=== PATIENT | female | born 1985 | race Caucasian/White ===

== ENCOUNTER 2016-11-02 07:09 | Emergency (ER) | payer OTHER ==
--- NOTE | 2016-11-02 09:04 | DIAGNOSTIC IMAGING REPORT ---
PROCEDURE: XR CHEST 2 VIEW INDICATION: COUGH, initial encounter TECHNIQUE: PA and lateral view. COMPARISON: None. FINDINGS: Lungs are clear. Cardiovascular structures are normal. Bony thorax is unremarkable. IMPRESSION: 1. Negative chest.
--- NOTE | 2016-11-02 09:05 | DIAGNOSTIC IMAGING REPORT ---
PROCEDURE: XR ABDOMEN 1 VIEW UPRIGHT INDICATION: VOMITING TECHNIQUE: AP upright view. COMPARISON: None. FINDINGS: No bowel obstruction, free air, mass or suspicious calcifications. Metallic umbilical piercing device is present. Bones are unremarkable. IMPRESSION: 1. Nonspecific bowel gas pattern.
--- NOTE | 2016-11-02 09:55 | ED CLINICAL REPORT ---
Clinical Report - Physicians/Mid Levels [facility] [address] [place] [address] 11/02/2016 7:16 Patient: EDDY MICHELLE Time Seen: 08:13 Nov 02 2016. Arrived- By private vehicle. Historian- patient. CPT: ER phys charges level 4 (#[id number]). HISTORY OF PRESENT ILLNESS Chief Complaint: VOMITING and DIARRHEA. ABDOMINAL PAIN and NAUSEA. This started about 1 weeks [employer] and is still present. No recent travel. She has had nausea and mild abdominal pain. The pain is described as located in the central area of the abdomen. She has had vomiting (1 times per day). She has had diarrhea (1 times per day). No black stools, bloody stools, flank pain, history of possible bad food exposure or known contact with a sick individual. Has not recently been camping or on antibiotics. The illness is described as moderate. (Has had baseline GI symptoms thought to be IBS and possible small bowel overgrowth syndrome. Has stayed away from dairy and glutten and feels the symptoms this week are different for her. Her PO intake has been down and she is worried about being dehydrated.). Similar symptoms previously: None. Recent medical care: Not recently seen/assessed. REVIEW OF SYSTEMS No fever, muscle aches, difficulty with urination, dark urine or headache. No chest pain, difficulty breathing, excessive urination or skin rash. Denies current . She has had dizziness and a sore throat and cough. All systems otherwise negative, except as recorded above. PAST HISTORY Fractured tibia right leg. Surgery 1 month ago. Anxiety Reaction. ADDITIONAL SURGERIES: ACL repair/tibia fx screws in. Benign tumor right breast removed. Facial surgery for injury. Medications: Oxycodone-Acetaminophen Oral 5/325 mg, as needed. Xanax Oral 0.5 mg, as needed. Zofran Oral. NuvaRing Vaginal. Effexor XR Oral 37.5 mg. Allergies: No Known Drug Allergy. SOCIAL HISTORY Former smoker. No alcohol use or drug use. ADDITIONAL NOTES The nursing notes have been reviewed. PHYSICAL EXAM Vital Signs: 11/02/2016 07:47 BP: 124/71. HR: 97. RR: 20. O2 saturation: 100%. Temp: 99.2 F. Pain level now: 5/10. Appearance: Alert. No acute distress. Eyes: Pupils equal, round and reactive to light. Eyes normal inspection. ENT: Ears normal. Nose normal. Dry mucous membranes present. Neck: Normal inspection. CVS: Normal heart rate and rhythm. Heart sounds normal. Pulses normal. Respiratory: No respiratory distress. Breath sounds normal. Abdomen: Soft. Mild tenderness in the periumbilical area. No guarding. Bowel sounds normal. No mass. Back: Normal inspection. No CVA tenderness. Skin: Skin warm. Normal skin color. No rash. Extremities: Extremities exhibit normal ROM. No lower extremity edema. Neuro: Oriented X 3. No motor deficit. No sensory deficit. LABS, X-RAYS, AND EKG Laboratory Tests: CBC w Diff: (JODY: 11/02/2016 08:06) ( [facility] 11/02/2016 08:35) Final results Test Result Flag Units (Reference) WHITE BLOOD COUNT 6.5 K/uL (4.5-11.5) RED BLOOD COUNT 4.32 M/uL (4.00-5.20) HEMOGLOBIN 13.3 gm/dL (12.0-16.0) HEMATOCRIT 39.1 % (36.0-46.0) MEAN CELL VOLUME 91 fL (80-100) MEAN CORPUSCULAR HGB 31 pg (26-34) MEAN CORPUSCULAR HGB CONC 34 g/dL (31-37) RED CELL DISTRIBUTION WIDTH 12.5 % (11.6-14.8) PLATELET COUNT 216 K/uL (150-400) NEUTROPHIL % 70.3 % (50-75) LYMPH % 23.5 L % (25-40) MONO % 5.3 % (3-14) EOSINOPHIL % 0.3 % (0-4) BASOPHIL % 0.6 % (0-2) CMP: (JODY: 11/02/2016 08:06) ( [facility] 11/02/2016 08:55) Final results Test Result Flag Units (Reference) GLUCOSE 94 mg/dL (70-110) BUN 13 mg/dL (7-18) CREATININE 0.8 mg/dL (0.6-1.3) Estimated GFR >60 mL/min Estimated GFR- >60 mL/min Note: Persistent reduction over 3 months in eGFR<60 mL/min/1.73 m2 defines CKD. Patients with eGFR values>=60 mL/min/1.73 m2 may also have CKD if evidence ofpersistent proteinuria. Additional information may be foundat www.kidney.org. SODIUM 139 mmol/L (136-145) POTASSIUM 4.0 mmol/L (3.5-5.1) CHLORIDE 103 mmol/L (98-107) CARBON DIOXIDE 23 mmol/L (21-32) CALCIUM 9.0 mg/dL (8.5-10.1) TOTAL PROTEIN 7.7 g/dL (6.4-8.2) ALBUMIN 3.8 g/dL (3.3-5.0) BILIRUBIN, TOTAL 0.4 mg/dL (0.0-1.0) ALKALINE PHOSPHATASE 54 U/L (46-116) AST (SGOT) 16 U/L (15-37) ALT (SGPT) 12 U/L (12-78) LIPASE 96 U/L (73-393) . PROGRESS AND PROCEDURES Course of Care: IV NS Phenergan 12.5 mg IV Patient is stable. Symptoms better. Patient/family counseled. Disposition: Discharged. Condition: stable. CLINICAL IMPRESSION Vomiting and diarrhea Volume depletion. INSTRUCTIONS Take clear liquids only (frequent sips) until better. Advance diet as tolerated. Warnings: Further evaluation is necessary. SEDATIVE MEDICATION: You were given sedative medication during your visit. Do not drive or operate dangerous machinery. Your Current Medications: CONTINUE TAKING THE FOLLOWING MEDICATIONS: Effexor XR Oral : 37.5 mg. NuvaRing Vaginal. Oxycodone-Acetaminophen Oral : 5/325 mg, prn. Xanax Oral : 0.5 mg, prn. Zofran Oral. Follow-up: Follow up with your doctor Saturday in three days if not well. Understanding of the discharge instructions verbalized by patient. (Electronically signed by Nikhil Osorio MD 11/04/2016 23:37)
--- NOTE | 2016-11-02 09:55 | ED CLINICAL REPORT ---
Clinical Report - Physicians/Mid Levels [facility] [address] [place] [address] 11/02/2016 7:16 Patient: EDDY MICHELLE Time Seen: 08:13 Nov 02 2016. Arrived- By private vehicle. Historian- patient. CPT: ER phys charges level 4 (#[id number]). HISTORY OF PRESENT ILLNESS Chief Complaint: VOMITING and DIARRHEA. ABDOMINAL PAIN and NAUSEA. 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 No recent travel. She has had nausea and mild abdominal pain. The pain is described as located in the central area of the abdomen. She has had vomiting (1 times per day). She has had diarrhea (1 times per day). No black stools, bloody stools, flank pain, history of possible bad food exposure or known contact with a sick individual. Has not recently been camping or on antibiotics. The illness is described as moderate. (Has had baseline GI symptoms thought to be IBS and possible small bowel overgrowth syndrome. Has stayed away from dairy and glutten and feels the symptoms this week are different for her. Her PO intake has been down and she is worried about being dehydrated.). Similar symptoms previously: None. Recent medical care: Not recently seen/assessed. REVIEW OF SYSTEMS No fever, muscle aches, difficulty with urination, dark urine or headache. No chest pain, difficulty breathing, excessive urination or skin rash. Denies current . She has had dizziness and a sore throat and cough. All systems otherwise negative, except as recorded above. PAST HISTORY Fractured tibia right leg. Surgery 1 month ago. Anxiety Reaction. ADDITIONAL SURGERIES: ACL repair/tibia fx screws in. Benign tumor right breast removed. Facial surgery for injury. Medications: Oxycodone-Acetaminophen Oral 5/325 mg, as needed. Xanax Oral 0.5 mg, as needed. Zofran Oral. NuvaRing Vaginal. Effexor XR Oral 37.5 mg. Allergies: No Known Drug Allergy. SOCIAL HISTORY Former smoker. No alcohol use or drug use. ADDITIONAL NOTES The nursing notes have been reviewed. PHYSICAL EXAM Vital Signs: 11/02/2016 07:47 BP: 124/71. HR: 97. RR: 20. O2 saturation: 100%. Temp: 99.2 F. Pain level now: 5/10. Appearance: Alert. No acute distress. Eyes: Pupils equal, round and reactive to light. Eyes normal inspection. ENT: Ears normal. Nose normal. Dry mucous membranes present. Neck: Normal inspection. CVS: Normal heart rate and rhythm. Heart sounds normal. Pulses normal. Respiratory: No respiratory distress. Breath sounds normal. Abdomen: Soft. Mild tenderness in the periumbilical area. No guarding. Bowel sounds normal. No mass. Back: Normal inspection. No CVA tenderness. Skin: Skin warm. Normal skin color. No rash. Extremities: Extremities exhibit normal ROM. No lower extremity edema. Neuro: Oriented X 3. No motor deficit. No sensory deficit. LABS, X-RAYS, AND EKG Laboratory Tests: CBC w Diff: (JODY: 11/02/2016 08:06) ( [facility] 11/02/2016 08:35) Final results Test Result Flag Units (Reference) WHITE BLOOD COUNT 6.5 K/uL (4.5-11.5) RED BLOOD COUNT 4.32 M/uL (4.00-5.20) HEMOGLOBIN 13.3 gm/dL (12.0-16.0) HEMATOCRIT 39.1 % (36.0-46.0) MEAN CELL VOLUME 91 fL (80-100) MEAN CORPUSCULAR HGB 31 pg (26-34) MEAN CORPUSCULAR HGB CONC 34 g/dL (31-37) RED CELL DISTRIBUTION WIDTH 12.5 % (11.6-14.8) PLATELET COUNT 216 K/uL (150-400) NEUTROPHIL % 70.3 % (50-75) LYMPH % 23.5 L % (25-40) MONO % 5.3 % (3-14) EOSINOPHIL % 0.3 % (0-4) BASOPHIL % 0.6 % (0-2) CMP: (JODY: 11/02/2016 08:06) ( [facility] 11/02/2016 08:55) Final results Test Result Flag Units (Reference) GLUCOSE 94 mg/dL (70-110) BUN 13 mg/dL (7-18) CREATININE 0.8 mg/dL (0.6-1.3) Estimated GFR >60 mL/min Estimated GFR- >60 mL/min Note: Persistent reduction over 3 months in eGFR<60 mL/min/1.73 m2 defines CKD. Patients with eGFR values>=60 mL/min/1.73 m2 may also have CKD if evidence ofpersistent proteinuria. Additional information may be foundat www.kidney.org. SODIUM 139 mmol/L (136-145) POTASSIUM 4.0 mmol/L (3.5-5.1) CHLORIDE 103 mmol/L (98-107) CARBON DIOXIDE 23 mmol/L (21-32) CALCIUM 9.0 mg/dL (8.5-10.1) TOTAL PROTEIN 7.7 g/dL (6.4-8.2) ALBUMIN 3.8 g/dL (3.3-5.0) BILIRUBIN, TOTAL 0.4 mg/dL (0.0-1.0) ALKALINE PHOSPHATASE 54 U/L (46-116) AST (SGOT) 16 U/L (15-37) ALT (SGPT) 12 U/L (12-78) LIPASE 96 U/L (73-393) . PROGRESS AND PROCEDURES Course of Care: IV NS Phenergan 12.5 mg IV Patient is stable. Symptoms better. Patient/family counseled. Disposition: Discharged. Condition: stable. CLINICAL IMPRESSION Vomiting and diarrhea Volume depletion. INSTRUCTIONS Take clear liquids only (frequent sips) until better. Advance diet as tolerated. Warnings: Further evaluation is necessary. SEDATIVE MEDICATION: You were given sedative medication during your visit. Do not drive or operate dangerous machinery. Your Current Medications: CONTINUE TAKING THE FOLLOWING MEDICATIONS: Effexor XR Oral : 37.5 mg. NuvaRing Vaginal. Oxycodone-Acetaminophen Oral : 5/325 mg, prn. Xanax Oral : 0.5 mg, prn. Zofran Oral. Follow-up: Follow up with your doctor Saturday in three days if not well. Understanding of the discharge instructions verbalized by patient. (Electronically signed by Nikhil Osorio MD 11/04/2016 23:37)
--- NOTE | 2016-11-02 09:55 | ED ORDER SUMMARY ---
..... Patient: EDDY MICHELLE OrderSheet [facility] VisitID: [id number] [place] [address] 31y, F Registration Date/Time: 11/02/2016 ORDER SHEET Weight: 63.5 kg (stated) Allergies: No Known Drug Allergy GENERAL ORDERS: Chest 2V Urgent (08:11/02/2016 Deejay MCLAIN) (Ack 8:31 LTapper) (8:43 LSullivan R.N.) Abdomen 1V Upright Urgent (08:11/02/2016 Deejay MCLAIN) (Ack 8:31 LTapper) (8:43 LSullivan R.N.) UA-Culture if indicated Urgent (:11/02/2016 Deejay MCLAIN) (Ack 8:31 LTapper) (10:27 LSullivan R.N.) Urine Urgent (08:11/02/2016 Deejay MCLAIN) (Ack 8:31 LTapper) (10:27 LSullivan R.N.) Urine Drug Screen Urgent (08:11/02/2016 Deejay MCLAIN) (Ack 8:31 LTapper) (10:27 LSullivan R.N.) CBC w Diff Urgent (08:11/02/2016 Deejay MCLAIN) (Ack 8:31 LTapper) (8:43 LSullivan R.N.) CMP Urgent (08:11/02/2016 Deejay MCLAIN) (Ack 8:31 LTapper) (8:43 LSullivan R.N.) Lipase Urgent (08:11/02/2016 Deejay MCLAIN) (Ack 8:31 LTapper) (8:43 LSullivan R.N.) MEDICATION ORDERS: Phenergan IV 12.5 mg (NOW) (08:29 11/02/2016 Deejay MCLAIN) (8:43 LSullivan R.N.) IV FLUIDS: IV NS with Normal Saline 1 Liter: initial bolus none -, then 1000 mL/hr for X1 (NOW); Routine (08:12 11/02/2016 POPullivan R.N. per protocol) (8:14 Reina Colon) ORDER SHEET NOTES: [Electronically signed by Francesca Mon R.N. (19:12 11/03/2016)] [Electronically signed by Nikhil Osorio MD (23:37 11/04/2016)] [Electronically locked/signed by Francesca Mon R.N. (19:12 11/03/2016)]
--- NOTE | 2016-11-02 09:55 | ED ORDER SUMMARY ---
..... Patient: EDDY MICHELLE OrderSheet [facility] VisitID: [id number] [place] [address] 31y, F Registration Date/Time: 11/02/2016 ORDER SHEET Weight: 63.5 kg (stated) Allergies: No Known Drug Allergy GENERAL ORDERS: Chest 2V Urgent (08:11/02/2016 Deejay MCLAIN) (Ack 8:31 LTapper) (8:43 LSullivan R.N.) Abdomen 1V Upright Urgent (08:11/02/2016 Deejay MCLAIN) (Ack 8:31 LTapper) (8:43 LSullivan R.N.) UA-Culture if indicated Urgent (:11/02/2016 Deejay MCLAIN) (Ack 8:31 LTapper) (10:27 LSullivan R.N.) Urine Urgent (08:11/02/2016 Deejay MCLAIN) (Ack 8:31 LTapper) (10:27 LSullivan R.N.) Urine Drug Screen Urgent (08:11/02/2016 Deejay MCLAIN) (Ack 8:31 LTapper) (10:27 LSullivan R.N.) CBC w Diff Urgent (08:11/02/2016 Deejay MCLAIN) (Ack 8:31 LTapper) (8:43 LSullivan R.N.) CMP Urgent (08:11/02/2016 Deejay MCLAIN) (Ack 8:31 LTapper) (8:43 LSullivan R.N.) Lipase Urgent (08:11/02/2016 Deejay MCLAIN) (Ack 8:31 LTapper) (8:43 LSullivan R.N.) MEDICATION ORDERS: Phenergan IV 12.5 mg (NOW) (08:29 11/02/2016 Deejay MCLAIN) (8:43 LSullivan R.N.) IV FLUIDS: IV NS with Normal Saline 1 Liter: initial bolus none -, then 1000 mL/hr for X1 (NOW); Routine (08:12 11/02/2016 POPullivan R.N. per protocol) (8:14 Reina Colon) ORDER SHEET NOTES: [Electronically signed by Francesca Mon R.N. (19:12 11/03/2016)] [Electronically signed by Nikhil Osorio MD (23:37 11/04/2016)] [Electronically locked/signed by Francesca Mon R.N. (19:12 11/03/2016)]
--- NOTE | 2016-11-02 09:55 | ED NURSING NOTES ---
Clinical Report - Nurses [facility] [address] [place] [address] 11/02/2016 7:16 Patient: EDDY MICHELLE TRIAGE Triage time 07:47. Acuity: LEVEL 4. Chief Complaint: NAUSEA, VOMITING and DIARRHEA. Alert. --07:56 Francesca Mon R.N. 07:47 11/02/16. BP: 124/71. HR: 97. RR: 20. O2 saturation: 100%. Temp: 99.2 F. Pain level now: 5/10. Additional comments: crampy only when diarrhea. --07:56 Francesca Mon R.N. Weight: 63.5 kg stated. Height/Length: 62 inches Per Patient. BMI: 25.6. --07:48 Francesca Mon R.N. Medications Effexor XR Oral 37.5 mg. --07:49 Francesca Mon R.N. NuvaRing Vaginal. --07:50 Francesca Mon R.N. Zofran Oral. --07:50 Francesca Mon R.N. Xanax Oral 0.5 mg, as needed. --07:50 Francesca Mon R.N. Oxycodone-Acetaminophen Oral 5/325 mg, as needed. --07:50 Francesca Mon R.N. Allergies No Known Drug Allergy. --07:49 Francesca Mon R.N. History Arrived by private vehicle. Historian: patient. Accompanied by spouse (pt was dropped off and has a ride when she needs it). Primary physician (Tiffanie). Onset. (about 1 week ago). PAST MEDICAL HX: Immunizations: up-to-date and (did not have flu shot). Denies current . SOCIAL HX: Former smoker, end date 2011. No alcohol use or drug use. FUNCTIONAL ASSESSMENT: Functional assessment: no impairments noted. LEARNING NEEDS ASSESSMENT: The learning needs assessment revealed no barriers. --07:56 Francesca Mon R.N. 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 --07:56 Francesca Mon R.N. PROBLEMS: Fractured tibia right leg. Anxiety Reaction. --07:54 Francesca Mon R.N. ADDITIONAL SURGERIES: ACL repair/tibia fx screws in. Benign tumor right breast removed. Facial surgery for injury. --07:54 Francesca Mon R.N. Assessment The patient states feels the same. --07:56 Francesca Mon R.N. Interventions ID band on patient. To room. --07:56 Francesca Mon R.N. PHYSICAL ASSESSMENT 07:57 11/02/16. Patient gowned. GENERAL / NEURO / PSYCH: Alert. Oriented X 4. RESPIRATORY: Respirations not labored. --07:57 Francesca Mon R.N. NURSING PROGRESS NOTES 07:57 11/02/16. Head of bed elevated. Patient identifiers checked. Call light placed in reach. Bed placed in lowest position. Brakes of bed on. Patient ready for evaluation- chart flagged. --07:57 Francesca Mon R.N. 08:04 11/02/2016 Site #1 started via IV in the right antecubital space with an 20g angiocath, with aseptic technique and good blood return; one attempt. Blood drawn: rainbow set. Labeled in the presence of the patient and sent to the lab. --08:14 Francesca Mon R.N. 08:06 11/02/2016 Started bag #1 1000 mL IV Fluids IV NS (Saline); at 1000 mL/hr via site #1 via IV pump. Confirmed 5 rights. IV patency established. IV site checked: no pain, redness, or swelling. IV flushed thoroughly pre- and post-medication administration. --08:14 Francesca Mon R.N. 08:38 11/02/2016 PHENERGAN (Promethazine HCl) IVP 12.5 mg given over 2 minute(s) via site #1. Allergies verified and confirmed 5 rights. --08:43 Mon, Francesca, R.N. 08:38. Patient transported to radiology by stretcher with [employer]. --08:43 Francesca Mon R.N. 09:17 11/02/2016 IV Fluids IV NS Discontinued: bag #1 completed. Total amount infused: 1000 mL. --10:27 Francesca Mon R.N. 10:18 11/02/2016 Site #1 removed upon discharge. Bandage applied. --10:28 Francesca Mon R.N. DISPOSITION / DISCHARGE Departure time: 1018. Condition at departure: improved. No learning barriers present. Discharge instructions provided and reviewed with the patient. Reviewed referral to family practice. Verbalized understanding. Written instructions provided. The patient was discharged home and accompanied by family. She left the Emergency Department ambulatory and via private vehicle. Family member driving. --10:26 Francesca Mon R.N. 10:18 11/02/16. BP: 104/53. HR: 74. RR: 18. O2 saturation: 100%. Temp: 98.8 F. Pain level now: 0/10. --10:26 Francesca Mon R.N. Locked/Released at 11/03/2016 19:12 by Francesca Mon R.N.
--- NOTE | 2016-11-02 09:55 | ED NURSING NOTES ---
Clinical Report - Nurses [facility] [address] [place] [address] 11/02/2016 7:16 Patient: EDDY MICHELLE TRIAGE Triage time 07:47. Acuity: LEVEL 4. Chief Complaint: NAUSEA, VOMITING and DIARRHEA. Alert. --07:56 Francesca Mon R.N. 07:47 11/02/16. BP: 124/71. HR: 97. RR: 20. O2 saturation: 100%. Temp: 99.2 F. Pain level now: 5/10. Additional comments: crampy only when diarrhea. --07:56 Francesca Mon R.N. Weight: 63.5 kg stated. Height/Length: 62 inches Per Patient. BMI: 25.6. --07:48 Francesca Mon R.N. Medications Effexor XR Oral 37.5 mg. --07:49 Francesca Mon R.N. NuvaRing Vaginal. --07:50 Francesca Mon R.N. Zofran Oral. --07:50 Francesca Mon R.N. Xanax Oral 0.5 mg, as needed. --07:50 Francesca Mon R.N. Oxycodone-Acetaminophen Oral 5/325 mg, as needed. --07:50 Francesca Mon R.N. Allergies No Known Drug Allergy. --07:49 Francesca Mon R.N. History Arrived by private vehicle. Historian: patient. Accompanied by spouse (pt was dropped off and has a ride when she needs it). Primary physician (Tiffanie). Onset. (about 1 week ago). PAST MEDICAL HX: Immunizations: up-to-date and (did not have flu shot). Denies current . SOCIAL HX: Former smoker, end date 2011. No alcohol use or drug use. FUNCTIONAL ASSESSMENT: Functional assessment: no impairments noted. LEARNING NEEDS ASSESSMENT: The learning needs assessment revealed no barriers. --07:56 Francesca Mon R.N. Treatment RESPONDER: (Zofran prn, Xanax yesterday once). --07:56 Francesca Mon R.N. PROBLEMS: Fractured tibia right leg. Anxiety Reaction. --07:54 Francesca Mon R.N. ADDITIONAL SURGERIES: ACL repair/tibia fx screws in. Benign tumor right breast removed. Facial surgery for injury. --07:54 Francesca Mon R.N. Assessment The patient states feels the same. --07:56 Francesca Mon R.N. Interventions ID band on patient. To room. --07:56 Francesca Mon R.N. PHYSICAL ASSESSMENT 07:57 11/02/16. Patient gowned. GENERAL / NEURO / PSYCH: Alert. Oriented X 4. RESPIRATORY: Respirations not labored. --07:57 Francesca Mon R.N. NURSING PROGRESS NOTES 07:57 11/02/16. Head of bed elevated. Patient identifiers checked. Call light placed in reach. Bed placed in lowest position. Brakes of bed on. Patient ready for evaluation- chart flagged. --07:57 Francesca Mon R.N. 08:04 11/02/2016 Site #1 started via IV in the right antecubital space with an 20g angiocath, with aseptic technique and good blood return; one attempt. Blood drawn: rainbow set. Labeled in the presence of the patient and sent to the lab. --08:14 Francesca Mon R.N. 08:06 11/02/2016 Started bag #1 1000 mL IV Fluids IV NS (Saline); at 1000 mL/hr via site #1 via IV pump. Confirmed 5 rights. IV patency established. IV site checked: no pain, redness, or swelling. IV flushed thoroughly pre- and post-medication administration. --08:14 Francesca Mon R.N. 08:38 11/02/2016 PHENERGAN (Promethazine HCl) IVP 12.5 mg given over 2 minute(s) via site #1. Allergies verified and confirmed 5 rights. --08:43 Mon, Francesca, R.N. 08:38. Patient transported to radiology by stretcher with [employer]. --08:43 Francesca Mon R.N. 09:17 11/02/2016 IV Fluids IV NS Discontinued: bag #1 completed. Total amount infused: 1000 mL. --10:27 Francesca Mon R.N. 10:18 11/02/2016 Site #1 removed upon discharge. Bandage applied. --10:28 Francesca Mon R.N. DISPOSITION / DISCHARGE Departure time: 1018. Condition at departure: improved. No learning barriers present. Discharge instructions provided and reviewed with the patient. Reviewed referral to family practice. Verbalized understanding. Written instructions provided. The patient was discharged home and accompanied by family. She left the Emergency Department ambulatory and via private vehicle. Family member driving. --10:26 Francesca Mon R.N. 10:18 11/02/16. BP: 104/53. HR: 74. RR: 18. O2 saturation: 100%. Temp: 98.8 F. Pain level now: 0/10. --10:26 Francesca Mon R.N. Locked/Released at 11/03/2016 19:12 by Francesca Mon R.N.
--- NOTE | 2016-11-04 23:37 | ED MED RECONCILIATION SUMMARY ---
Patient: EDDY MICHELLE Medication Reconciliation Report [facility] VisitID: [id number] [address] [place] [address] 31y, F Registration Date/Time: 11/02/2016 Weight: 63.5 kg Height/Length: 62 in. BMI: 25.6 ALLERGIES: No Known Drug Allergy The patient's Home Medications are listed below: CONTINUE TAKING THE FOLLOWING MEDICATIONS: Effexor XR Oral 37.5 mg NuvaRing Vaginal Oxycodone-Acetaminophen Oral 5/325 mg Xanax Oral 0.5 mg Zofran Oral The source(s) of the original Home Medication information: Not obtained. The following Medications were given to the patient in the Emergency Department: IV NS IV Fluids bolus 0, then 1000 mL/hr, administered: 11/02/2016 8:06:00 AM PHENERGAN [IVP] IVP 12.5 mg, administered: 11/02/2016 8:38:00 AM The following Medications were prescribed to the patient: None.
--- NOTE | 2016-11-04 23:37 | ED DISCHARGE INSTRUCTIONS ---
Patient: EDDY MICHELLE General Instructions [facility] VisitID: [id number] [place] [address] 31y, F Registration Date/Time: 11/02/2016 Vomiting and diarrhea Volume depletion. INSTRUCTIONS Take clear liquids only (frequent sips) until better. Advance diet as tolerated. Warnings: Further evaluation is necessary. SEDATIVE MEDICATION: You were given sedative medication during your visit. Do not drive or operate dangerous machinery. Your Current Medications: CONTINUE TAKING THE FOLLOWING MEDICATIONS: Effexor XR Oral : 37.5 mg. NuvaRing Vaginal. Oxycodone-Acetaminophen Oral : 5/325 mg, prn. Xanax Oral : 0.5 mg, prn. Zofran Oral. Follow-up: Follow up with your doctor Saturday in three days if not well. Understanding of the discharge instructions verbalized by patient. ADDITIONAL INFORMATION Clear Liquid Diet Clear liquids are any liquid that you can see through as well as those that are very easy to digest. This is used while the body is recovering from irritation or infection of the stomach or intestinal tract. It may also be used before special procedures or surgery. This diet is to be used no more than three days. You may include the following items. Adults Adults should drink a total of 23 quarts of liquid per day. It may be easier to drink small frequent servings rather than a few large ones. Liquids can include: Fruit juices.Strained orange juice or lemonade (no pulp), apple, grape and cranberry juice, clear fruit drinks, sports drinks Beverages.Sport drinks, sodas, mineral water (plain or flavored), tea, black coffee, liquid gelatin (add twice the recommended amount of water) Soups.Clear broth, consomm, bouillon Desserts.Plain gelatin, popsicles, fruit juice bars Children Over 2 years old The following liquids are acceptable for children over age 2: Fruit juices.Strained orange juice or lemonade (no pulp), apple, grape and cranberry juice, clear fruit drinks Beverages. Sports drinks, sodas, mineral water (plain or flavored), tea, liquid gelatin (add twice the recommended amount of water) Soups. Clear broth, consomm, bouillon Desserts. Plain gelatin, popsicles, fruit juice bars Children under 2 years old Oral rehydration fluids such are available at drug stores and most grocery stores without a prescription. You have been given the following additional information: Diet, Clear Liquid (Electronically signed by Nikhil Osorio MD 11/04/2016 23:37)
--- NOTE | 2016-11-04 23:37 | ED DISCHARGE INSTRUCTIONS ---
Patient: EDDY MICHELLE General Instructions [facility] VisitID: [id number] [place] [address] 31y, F Registration Date/Time: 11/02/2016 Vomiting and diarrhea Volume depletion. INSTRUCTIONS Take clear liquids only (frequent sips) until better. Advance diet as tolerated. Warnings: Further evaluation is necessary. SEDATIVE MEDICATION: You were given sedative medication during your visit. Do not drive or operate dangerous machinery. Your Current Medications: CONTINUE TAKING THE FOLLOWING MEDICATIONS: Effexor XR Oral : 37.5 mg. NuvaRing Vaginal. Oxycodone-Acetaminophen Oral : 5/325 mg, prn. Xanax Oral : 0.5 mg, prn. Zofran Oral. Follow-up: Follow up with your doctor Saturday in three days if not well. Understanding of the discharge instructions verbalized by patient. ADDITIONAL INFORMATION Clear Liquid Diet Clear liquids are any liquid that you can see through as well as those that are very easy to digest. This is used while the body is recovering from irritation or infection of the stomach or intestinal tract. It may also be used before special procedures or surgery. This diet is to be used no more than three days. You may include the following items. Adults Adults should drink a total of 23 quarts of liquid per day. It may be easier to drink small frequent servings rather than a few large ones. Liquids can include: Fruit juices.Strained orange juice or lemonade (no pulp), apple, grape and cranberry juice, clear fruit drinks, sports drinks Beverages.Sport drinks, sodas, mineral water (plain or flavored), tea, black coffee, liquid gelatin (add twice the recommended amount of water) Soups.Clear broth, consomm, bouillon Desserts.Plain gelatin, popsicles, fruit juice bars Children Over 2 years old The following liquids are acceptable for children over age 2: Fruit juices.Strained orange juice or lemonade (no pulp), apple, grape and cranberry juice, clear fruit drinks Beverages. Sports drinks, sodas, mineral water (plain or flavored), tea, liquid gelatin (add twice the recommended amount of water) Soups. Clear broth, consomm, bouillon Desserts. Plain gelatin, popsicles, fruit juice bars Children under 2 years old Oral rehydration fluids such are available at drug stores and most grocery stores without a prescription. You have been given the following additional information: Diet, Clear Liquid (Electronically signed by Nikhil Osorio MD 11/04/2016 23:37)
--- NOTE | 2016-11-04 23:37 | ED MAR SUMMARY ---
..... Medication Administration Record [facility] [address] [place] [address] Patient: EDDY MICHELLE Visit ID: [id number] 31y, F Weight: 63.5 kg Height/Length: 62 in BMI: 25.6 ALLERGIES: No Known Drug Allergy Start 08:06 11/02/2016 Francesca Mon R.N., Stop 09:17 11/02/2016 Francesca Mon R.N. Medication Administered: IV NS (SALINE), Dose: IV Fluids, Rate: 1000 mL/hr, Dispensed: 1000 mL bag, Site: #1 right AC. Medication Ordered: IV NS with Normal Saline 1 Liter: initial bolus none -, then 1000 mL/hr for X1 (NOW); Routine. Given 08:38 11/02/2016 Francesca Mon R.N. Medication Administered: PHENERGAN [IVP] (PROMETHAZINE HCL), Dose: 12.5 mg IVP over 2 minute(s), Site: #1 right AC. Medication Ordered: Phenergan IV 12.5 mg (NOW).
--- NOTE | 2016-11-04 23:37 | ED MAR SUMMARY ---
..... Medication Administration Record [facility] [address] [place] [address] Patient: EDDY MICHELLE Visit ID: [id number] 31y, F Weight: 63.5 kg Height/Length: 62 in BMI: 25.6 ALLERGIES: No Known Drug Allergy Start 08:06 11/02/2016 Francesca Mon R.N., Stop 09:17 11/02/2016 Francesca Mon R.N. Medication Administered: IV NS (SALINE), Dose: IV Fluids, Rate: 1000 mL/hr, Dispensed: 1000 mL bag, Site: #1 right AC. Medication Ordered: IV NS with Normal Saline 1 Liter: initial bolus none -, then 1000 mL/hr for X1 (NOW); Routine. Given 08:38 11/02/2016 Francesca Mon R.N. Medication Administered: PHENERGAN [IVP] (PROMETHAZINE HCL), Dose: 12.5 mg IVP over 2 minute(s), Site: #1 right AC. Medication Ordered: Phenergan IV 12.5 mg (NOW).
--- NOTE | 2016-11-04 23:37 | ED MED RECONCILIATION SUMMARY ---
Patient: EDDY MICHELLE Medication Reconciliation Report [facility] VisitID: [id number] [address] [place] [address] 31y, F Registration Date/Time: 11/02/2016 Weight: 63.5 kg Height/Length: 62 in. BMI: 25.6 ALLERGIES: No Known Drug Allergy The patient's Home Medications are listed below: CONTINUE TAKING THE FOLLOWING MEDICATIONS: Effexor XR Oral 37.5 mg NuvaRing Vaginal Oxycodone-Acetaminophen Oral 5/325 mg Xanax Oral 0.5 mg Zofran Oral The source(s) of the original Home Medication information: Not obtained. The following Medications were given to the patient in the Emergency Department: IV NS IV Fluids bolus 0, then 1000 mL/hr, administered: 11/02/2016 8:06:00 AM PHENERGAN [IVP] IVP 12.5 mg, administered: 11/02/2016 8:38:00 AM The following Medications were prescribed to the patient: None.
== END 2016-11-02 10:18 | disposition home or self-care (01) ==
LOC: ED SRH 07:09
DX: R11.10 Vomiting, unspecified (principal); R19.7 Diarrhea, unspecified; E86.9 Volume depletion, unspecified; Z79.899 Other long term (current) drug therapy
CPT/HCPCS: 90004; 90100; 92235; 92760; 92761; 92762; 92763; 92764; 92765; 92766; 92767; 93070; 95059